=== PATIENT | female | born 1985 | race Caucasian/White ===

== ENCOUNTER 2021-01-01 14:24 | Emergency (ER) | payer OTHER ==
[~2021-01-01] VITALS: Ht 182.9 cm; Wt 131.5 kg
[2021-01-01] MEDS ORDERED: CYCL5TAB PO (15:26)
[2021-01-01] MEDS ORDERED: ACET-2605 PO (15:26)
[2021-01-01] MEDS ORDERED: CYCLOBENZAPRINE 10 MG TABLET ONE (15:28)
[2021-01-01] MEDS ORDERED: KETOROLAC TROMETHAMINE INJ 30 MG/ML VIAL ONE (15:28)
[2021-01-01] MEDS ORDERED: CYCLOBENZAPRINE 10 MG TABLET PO ONE (15:30)
[2021-01-01] MEDS ORDERED: KETOROLAC TROMETHAMINE INJ 60 MG/2 ML VIAL IM ONE (15:30)
--- NOTE | 2021-01-01 15:50 | NUR ---
PT MEDICALLY CLEAR TO GO BACK TO [facility]
--- NOTE | 2021-01-01 16:08 | NUR ---
[facility] AT THE [facility] MADE AWARE THAT PT IS COMING BACK. REPORT GIVEN.
--- NOTE | 2021-01-01 16:13 | NUR ---
[facility] CALLED ETA 45 PER [facility]
--- NOTE | 2021-01-01 16:51 | NUR ---
[facility] AT BEDSIDE FOR TRANSPORT BACK TO [facility]. PT IS IN STABLE CONDITION FOR TRANSPROT. PT IS AMBULATORY ON [facility] GAIT
[2021-01-01 16:52] VITALS: BP 116/66
== END 2021-01-01 16:53 | disposition home or self-care (01) ==
LOC: ER 14:28
DX: M79.10 Myalgia, unspecified site (principal)
CPT/HCPCS: 96372; 99283; J1885